=== PATIENT | male | born 1980 | race African-American/Black ===

== ENCOUNTER 2018-01-25 02:45 | Emergency (ER) | payer SELFPAY ==
[~2018-01-25] VITALS: Ht 188 cm; Wt 137.0 kg
[2018-01-25] MEDS ORDERED: KETOROLAC 30MG/ML VIAL IV ONE (04:15)
[2018-01-25] MEDS ORDERED: ONDANSETRON HCL 4MG/2ML INJ IV ONE (04:30)
[2018-01-25 04:57] LABS: BASOPHILS % 0.5 % (0.0-2.0); EOSINOPHILS % 0.1 % (0.0-5.0); HEMATOCRIT. 45.5 % (42.0-52.0); HEMOGLOBIN. 15.9 g/dL (14.0-18.0); MEAN CORPUSCULAR HEMOGLOBIN 31.4 pg (28.0-32.0); MEAN CORPUSCULAR VOLUME 89.6 fL (80.0-94.0); MEAN PLATELET VOLUME 8.9 fl (7.4-10.4); MONOCYTES % 2.1 % (2.0-8.0); NEUTROPHILS % 86.3 % (40.0-76.0); PLATELET 336 x1000/uL (130-400); RED BLOOD CELL COUNT 5.08 mill/uL (4.7-6.1); RED CELL DISTRIBUTION WIDTH 13.6 % (11.6-14.6)
[2018-01-25 04:59] LABS: CHLORIDE 101 mEq/L (98-107)
[2018-01-25 05:03] LABS: ETHANOL BLOOD 18 mg/dL
[2018-01-25 07:18] LABS: CLARITY URINE TURBID (CLEAR); COLOR URINE YELLOW (YELLOW); KETONES URINE TRACE (NEGATIVE); LEUKOCYTE ESTERASE URINE NEGATIVE (NEGATIVE); NITRITE URINE NEGATIVE (NEGATIVE); OCCULT BLOOD URINE NEGATIVE (NEGATIVE); PROTEIN URINE 1+ (NEGATIVE); SPECIFIC GRAVITY URINE 1.022 (1.005-1.030); UROBILINOGEN URINE 0.2 E.U./dL (0.2-1.0)
[2018-01-25 07:50] LABS: *AMPHETAMINES SCREEN URINE NEGATIVE (NEGATIVE); *BARBITURATES SCREEN URINE NEGATIVE (NEGATIVE); *BENZODIAZEPINES SCREEN URINE NEGATIVE (NEGATIVE); *COCAINE SCREEN URINE NEGATIVE (NEGATIVE)
[2018-01-25 07:51] LABS: CANNABINOID URINE SCREEN PRESUMTIVE POSITIVE (NEGATIVE); OPIATES URINE SCREEN PRESUMTIVE POSITIVE (NEGATIVE); PHENCYCLIDINE URINE SCREEN NEGATIVE (NEGATIVE)
[2018-01-25 08:01] LABS: METHADONE URINE SCREEN NEGATIVE (NEGATIVE)
[2018-01-25 09:26] VITALS: BP 144/77
== END 2018-01-25 09:30 | disposition home or self-care (01) ==
LOC: ER 03:31
DX: N39.0 Urinary tract infection, site not specified (principal); R03.0 Elevated blood-pressure reading, without diagnosis of hypertension; E11.9 Type 2 diabetes mellitus without complications
CPT/HCPCS: 36415; 74176; 80053; 80305; 81003; 82962; 83690; 85025; 96374; 96375; 99284; G0482; J1885; J2405; J7030

== ENCOUNTER 2024-06-13 20:05 | Emergency (ER) | payer MEDICAID ==
[~2024-06-13] VITALS: Ht 188 cm; Wt 125.0 kg
[2024-06-13 20:14] VITALS: O2SAT 96
[2024-06-13 21:01] VITALS: TEMP 36.9; O2SAT 95
[2024-06-13 23:15] VITALS: BP 133/94; PULSE 105; RESP 18
[2024-06-13] MEDS: KETOROLAC 15MG/ML VIAL IM ONE (23:15)
[2024-06-13] MEDS: LIDOCAINE 5% PATCH TOP SCH (23:15)
[2024-06-13] MEDS: ONDANSETRON HCL 4MG TABLET PO ONE (23:15)
[2024-06-14] MEDS ORDERED: LIDO700A15 TP (01:12)
[2024-06-14] MEDS ORDERED: NAPR-1176 MT (01:12)
[2024-06-14] MEDS ORDERED: CYCL5TAB3 MT (01:12)
== END 2024-06-14 01:21 | disposition home or self-care (01) ==
LOC: ER 20:05
DX: M25.519 Pain in unspecified shoulder (principal); R10.9 Unspecified abdominal pain; E11.9 Type 2 diabetes mellitus without complications; I10 Essential (primary) hypertension; Z79.1 Long term (current) use of non-steroidal anti-inflammatories (NSAID); V43.52XA Car driver injured in collision with other type car in traffic accident, initial encounter; Y92.410 Unspecified street and highway as the place of occurrence of the external cause; Y93.89 Activity, other specified; Y99.8 Other external cause status
CPT/HCPCS: 99285; 74176; 71045; 72100; 96372; J1885; Q0162